=== PATIENT | female | born 1975 ===

== ENCOUNTER 2017-10-07 13:26 | Emergency (ER) | payer OTHER ==
[2017-10-07 13:35] VITALS: BP 127/89; PULSE 109; RESP 20; TEMP 98; O2SAT 99
--- NOTE | 2017-10-07 14:38 | ED PDOC ---
HPI: General Adult Time Seen by Provider: 10/07/17 14:36 Chief Complaint (Nursing): Medical Clearance Chief Complaint (Provider): co exposure History Per: Patient (42 y/o female here for evaluation of CO exposure. Denies any symptoms. ) Past Medical History Reviewed: Historical Data, Nursing Documentation, Vital Signs Vital Signs: Last Vital Signs Temp 98 F 10/07/17 13:33 Pulse 109 H 10/07/17 13:33 Resp 20 10/07/17 13:33 BP 127/89 10/07/17 13:33 Pulse Ox 99 10/07/17 13:33 - Family History Family History: States: No Known Family Hx - Immunization History Hx Tetanus Toxoid Vaccination: No Hx Influenza Vaccination: No Hx Pneumococcal Vaccination: No - Allergies Allergies/Adverse Reactions: Allergies Allergy/AdvReac Type Severity Reaction Status Date / Time No Known Allergies Allergy Verified 10/07/17 13:33 Review of Systems ROS Statement: Except As Marked, All Systems Reviewed And Found Negative Physical Exam - Reviewed Nursing Documentation Reviewed: Yes Vital Signs Reviewed: Yes - Physical Exam Appears: Positive for: Well, Non-toxic, No Acute Distress Head Exam: Positive for: ATRAUMATIC, NORMAL INSPECTION, NORMOCEPHALIC Skin: Positive for: Normal Color, Warm, DRY Eye Exam: Positive for: EOMI, Normal appearance, PERRL ENT: Positive for: Normal ENT Inspection Neck: Positive for: Normal, Painless ROM Cardiovascular/Chest: Positive for: Regular Rate, Rhythm Respiratory: Positive for: CNT, Normal Breath Sounds Gastrointestinal/Abdominal: Positive for: Normal Exam, Bowel Sounds, Soft Back: Positive for: Normal Inspection Extremity: Positive for: Normal ROM Neurologic/Psych: Positive for: Alert, Oriented - ECG O2 Sat by Pulse Oximetry: 99 - Progress ED Course And Treament: Patient does not want VBG CO testing in ED noted less than 2. Patient asymptomatic. Disposition - Clinical Impression Clinical Impression: Carbon monoxide exposure - Patient ED Disposition Is Patient to be Admitted: No - Disposition Disposition: Routine/Home Disposition Time: 14:38 Condition: FAIR Instructions: Carbon Monoxide Poisoning (ED)
== END 2017-10-07 15:01 | disposition home or self-care (01) ==
LOC: H.ER 13:26
DX: T58.91XA Toxic effect of carbon monoxide from unspecified source, accidental (unintentional), initial encounter (principal)